=== PATIENT | female | born 1980 | race Caucasian/White ===

== ENCOUNTER → 2021-02-07 10:12 | Outpatient (BNVA) | payer BC, SELFPAY | PROVIDERS: Visit Provider Internal Medicine | DX: R76.8 Other specified abnormal immunological findings in serum (principal); R53.83 Other fatigue; M25.50 Pain in unspecified joint; Z11.59 Encounter for screening for other viral diseases; F17.210 Nicotine dependence, cigarettes, uncomplicated | CPT/HCPCS: 99204 ==

== ENCOUNTER 2021-02-07 12:14 | Outpatient (CLI) | payer BC, SELFPAY ==
--- NOTE | 2021-02-07 12:25 | XRR_ITS ---
PROCEDURE INFORMATION: Exam: XR Bilateral Hips Exam date and time: 02/07/2021 12:25 PM Age: 40 years old Clinical indication: Being tested for rheumatoid. Complains of bilateral hand and shoulder pain. Was on steroids for years. TECHNIQUE: Imaging protocol: XR bilateral hips. Views: 2 views of hips with pelvis when performed. COMPARISON: No relevant prior studies available. FINDINGS: Bones/joints: The right lesser trochanter appears abnormal on the frontal view with a permeative lucent appearance. No hip joint erosion is seen. A small os acetabulum is seen on the left. No significant osteoarthritis. No fracture, dislocation or subluxation. Soft tissues: No gross soft tissue swelling. XR/XR hip BI 3-4V wo/w pel [id number] IMPRESSION: The right lesser trochanter appears abnormal on the frontal view with a permeative lucent appearance. Recommend CT to better characterize. Radiation Dose CTDIVOL = (mGy): DLP = (mGy-cm)
--- NOTE | 2021-02-07 12:25 | XRR_ITS ---
PROCEDURE INFORMATION: Exam: XR Right Shoulder Exam date and time: 02/07/2021 12:25 PM Age: 40 years old Clinical indication: Being tested for rheumatoid. Complains of bilateral hand, hip and shoulder pain. Was on steroids for years. TECHNIQUE: Imaging protocol: XR Right shoulder. Views: 2 or more views. COMPARISON: No relevant prior studies available. FINDINGS: Bones/joints: No periosteal reaction or supsicious bone lesion. No fracture, dislocation or subluxation. No significant osteoarthritis. No erosion is seen. Lungs: The visualized right lung is grossly clear. Soft tissues: No gross soft tissue swelling. XR/XR shoulder RT min 2V* [id number] IMPRESSION: No acute abnormality is seen. Radiation Dose CTDIVOL = (mGy): DLP = (mGy-cm)
--- NOTE | 2021-02-07 12:25 | XRR_ITS ---
PROCEDURE INFORMATION: Exam: XR Right Hand Exam date and time: 02/07/2021 12:25 PM Age: 40 years old Clinical indication: Being tested for rheumatoid. Complains of bilateral hand, hip and shoulder pain. Was on steroids for years. TECHNIQUE: Imaging protocol: XR Right hand. Views: 1 or 2 views. COMPARISON: No relevant prior studies available. FINDINGS: Bones/joints: The scapholunate and lunotriquetral intervals are maintained. No chondrocalcinosis is seen. No definite erosion is seen. 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 This can be seen with rheumatoid arthritis. No fracture, dislocation or subluxation. Soft tissues: No gross soft tissue swelling. XR/XR hand RT 2V [id number] IMPRESSION: 1. 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 This can be seen with rheumatoid arthritis. 2. No definite erosion is seen. Radiation Dose CTDIVOL = (mGy): DLP = (mGy-cm)
--- NOTE | 2021-02-07 12:25 | XRR_ITS ---
PROCEDURE INFORMATION: Exam: XR Left Shoulder Exam date and time: 02/07/2021 12:25 PM Age: 40 years old Clinical indication: Being tested for rheumatoid. Complains of bilateral hand, hip and shoulder pain. Was on steroids for years. TECHNIQUE: Imaging protocol: XR Left shoulder. Views: 2 or more views. COMPARISON: No relevant prior studies available. FINDINGS: Bones/joints: No periosteal reaction or supsicious bone lesion. No fracture, dislocation or subluxation. No significant osteoarthritis. No erosion is seen. Lungs: The visualized left lung is grossly clear. Soft tissues: No gross soft tissue swelling. XR/XR shoulder LT min 2V* [id number] IMPRESSION: No acute abnormality is seen. Radiation Dose CTDIVOL = (mGy): DLP = (mGy-cm)
--- NOTE | 2021-02-07 12:25 | XRR_ITS ---
PROCEDURE INFORMATION: Exam: XR Left Hand Exam date and time: 02/07/2021 12:25 PM Age: 40 years old Clinical indication: Being tested for rheumatoid. Complains of bilateral hand, hip and shoulder pain. Was on steroids for years. TECHNIQUE: Imaging protocol: XR Left hand. Views: 3 or more views. COMPARISON: No relevant prior studies available. FINDINGS: Bones/joints: The scapholunate and lunotriquetral intervals are maintained. No chondrocalcinosis is seen. There are questionable small erosions involving the distal aspects of the proximal phalanges of the 3rd and 4th fingers. Questionable small erosion involving the proximal aspect of the proximal phalanx of the small finger. 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 This can be seen with rheumatoid arthritis. No fracture, dislocation or subluxation. Soft tissues: No significant soft tissue swelling. XR/XR hand LT 2V [id number] IMPRESSION: 1. There are questionable small erosions involving the distal aspects of the proximal phalanges of the 3rd and 4th fingers. Questionable small erosion involving the proximal aspect of the proximal phalanx of the small finger. 2. 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 This can be seen with rheumatoid arthritis. Radiation Dose CTDIVOL = (mGy): DLP = (mGy-cm)
== END 2021-02-07 12:15 | disposition home or self-care (01) ==
PROVIDERS: PCP Nurse Practitioner Family; Visit Provider Internal Medicine
DX: R76.8 Other specified abnormal immunological findings in serum (principal); M06.9 Rheumatoid arthritis, unspecified; Z11.59 Encounter for screening for other viral diseases
CPT/HCPCS: 73030; 73120; 73503; 73522; 80053; 81003; 82306; 82533; 82550; 82607; 82728; 82784; 83516; 83540; 83735; 84443; 85025; 85651; 86140; 86160; 86704; 86803; 87340

== ENCOUNTER → 2021-02-18 09:27 | Outpatient (BNVA) | payer BC, SELFPAY | PROVIDERS: PCP Nurse Practitioner Family; Visit Provider Internal Medicine | DX: M25.50 Pain in unspecified joint (principal); L30.9 Dermatitis, unspecified; R53.83 Other fatigue; Z79.899 Other long term (current) drug therapy; Z82.61 Family history of arthritis; E55.9 Vitamin D deficiency, unspecified; M85.80 Other specified disorders of bone density and structure, unspecified site; M54.2 Cervicalgia; M54.50 Low back pain, unspecified; G89.29 Other chronic pain; R29.898 Other symptoms and signs involving the musculoskeletal system | CPT/HCPCS: 99214 ==